=== PATIENT | male | born 1945 | race American Indian/Alaskan Native ===

== ENCOUNTER 2018-10-24 14:09 | Emergency (ER) | payer MEDICARE, MEDICAID ==
--- NOTE | 2018-10-24 14:42 | Emergency Department Report ---
HPI - General Chief Complaint: Urogenital-Male Time Seen by Provider: 10/24/18 14:30 - HPI HPI: Ervin 24 The patient is a 73-year-old male sent from the al[facility] for urethral bleeding. The patient has a history of Parkinson's. The patient acknowledges he was told he was passing blood from his penis by saying "that's what they say." Patient denies having pain of any type Location: [See above] Duration: [See above] Quality: [See above] Severity: [See above] Modifying factors: [see above] Context: [see above] Mode of transportation: [not driving] ED Past Medical Hx - Past Medical History Previous Medical History?: Yes Additional medical history: PARKINSON'S, DYSLIPEDEMIA, BPH - Surgical History Past Surgical History?: No - Family History Family history: no significant - Social History Smoking Status: Never Smoker Substance Use Type: None - Medications Home Medications: Home Medications Medication Instructions Recorded Confirmed Last Taken Type Sulfamethoxazole/Trimethoprim 1 each PO BID #14 tablet 10/24/18 Unknown Rx [Bactrim DS TAB] ED Review of Systems ROS: Stated complaint: URETHRAL BLEEDING Other details as noted in HPI Constitutional: no symptoms reported Eyes: denies: eye pain ENT: denies: throat pain Respiratory: no symptoms reported Cardiovascular: denies: chest pain Endocrine: no symptoms reported Gastrointestinal: denies: abdominal pain Genitourinary: hematuria. denies: testicular pain Musculoskeletal: denies: back pain Neurological: denies: headache Physical Exam - Physical Exam Vital Signs: Vital Signs 10/24/18 14:10 Pulse Rate 86 Respiratory 16 Rate Blood Pressure 94/51 O2 Sat by Pulse 100 Oximetry Physical Exam: GENERAL: The patient is well-developed well-nourished male lying on stretcher eating a sandwich not appearing to be in acute distress HEENT: Normocephalic. Atraumatic. Extraocular motions are intact. Patient has moist mucous membranes. NECK: Supple. No meningitic signs are noted. There is no adenopathy noted. CHEST/LUNGS: Clear to auscultation. There is no respiratory distress noted. HEART/CARDIOVASCULAR: Regular. There is no tachycardia. There is no gallop rub or murmur. ABDOMEN: Abdomen is soft, nontender. Patient has normal bowel sounds. There is no abdominal distention. SKIN: There is no rash. There is no edema. There is no diaphoresis. NEURO: The patient is awake and alert. The patient is cooperative. The patient has normal speech MUSCULOSKELETAL: There is no evidence of acute injury. GENITOURINARY: No blood at the urethral meatus. No penile lesions appreciated ED Course Vital Signs 10/24/18 14:10 Pulse Rate 86 Respiratory 16 Rate Blood Pressure 94/51 O2 Sat by Pulse 100 Oximetry ED Medical Decision Making - Lab Data Result diagrams: 10/24/18 14:42 10/24/18 14:42 Laboratory Tests 10/24/18 10/24/18 10/24/18 14:42 14:42 14:42 WBC 4.9 RBC 3.34 L Hgb 10.9 L Hct 32.0 L MCV 96 H MCH 33 H MCHC 34 RDW 14.1 Plt Count 230 PT 13.3 INR 1.04 APTT 27.9 Sodium 141 Potassium 4.1 Chloride 106.2 Carbon Dioxide 28 Anion Gap 11 BUN 11 Creatinine 0.6 L Estimated GFR > 60 BUN/Creatinine Ratio 18 Glucose 87 Calcium 9.1 Urine Color Urine Turbidity Urine pH Ur Specific Severance Urine Protein Urine Glucose (UA) Urine Ketones Urine Blood Urine Nitrite Urine Bilirubin Urine Urobilinogen Ur Leukocyte Esterase Urine WBC (Auto) Urine RBC (Auto) 10/24/18 16:45 WBC RBC Hgb Hct MCV MCH MCHC RDW Plt Count PT INR APTT Sodium Potassium Chloride Carbon Dioxide Anion Gap BUN Creatinine Estimated GFR BUN/Creatinine Ratio Glucose Calcium Urine Color Yellow Urine Turbidity Clear Urine pH 7.0 Ur Specific Severance 1.015 Urine Protein <15 mg/dl Urine Glucose (UA) Neg Urine Ketones Tr Urine Blood Neg Urine Nitrite Neg Urine Bilirubin Neg Urine Urobilinogen < 2.0 Ur Leukocyte Esterase Neg Urine WBC (Auto) < 1.0 Urine RBC (Auto) 16.0 - Radiology Data Radiology results: report reviewed (CT abdomen and pelvis), image reviewed (CT abdomen and pelvis) [facility] [address] [place] [address] Cat Scan Report Signed Patient: DONTRELL JASSO MR#: [id number] : 1945 Acct:[id number] Age/Sex: 73 / M ADM Date: 10/24/18 Loc: ED Attending Dr: Ordering Physician: EMILY GARBER MD Date of Service: 10/24/18 Procedure(s): CT abdomen pelvis wo con Accession Number(s): [id number] cc: EMILY GARBER MD CT ABDOMEN AND PELVIS WITHOUT CONTRAST HISTORY: bleeding from urethra COMPARISON: None TECHNIQUE: Images of the abdomen and pelvis were obtained without IV contrast. O ral contrast was not given. This exam is limited without IV contrast and is tailored for evaluation of renal calculi. Renal masses and other sources of hematuria and abdominal pain may not be visible on this exam. CONTRAST: None. FINDINGS: CT ABDOMEN: Lung Bases: Clear. Liver: No significant abnormality. Biliary: No significant abnormality. Spleen: No significant abnormality. Unenlarged. Pancreas: No significant abnormality. Adrenals: No significant abnormality. Right Kidney: No nephrolithiasis or hydronephrosis. A dominant 2.3 cm right renal cyst. Left Kidney: No nephrolithiasis or hydronephrosis. A dominant 1.1 cm left renal cyst. Lymphatics: Soft tissue fullness in the retroperitoneum. Retroperitoneal lymphadenopathy cannot be excluded. Vasculature: No significant abnormality. Bowel/Peritoneum: A large volume of stool throughout the colon. No free air. No free fluid. CT PELVIS: : The urinary bladder is moderately distended with no obvious mass, wall thi ckening or calculus. The prostate is enlarged. Osseous Structures: A 1 cm irregular lucent lesion of the right posterior iliac bone and a mixed density 3 cm lesion of the left posterior iliac bone. No other suspicious bone lesions. Additional Findings: None IMPRESSION: 1. Negative for urolithiasis or obstructive uropathy. 2. Retroperitoneal soft tissue fullness. Retroperitoneal lymphadenopathy cannot be excluded. 3. Benign renal cysts. 4. Bilateral iliac bone lesions. Recommend further evaluation with x-rays and nuclear medicine bone scan. Signer Name: Magen Parra MD Signed: 10/24/2018 4:22 PM Workstation Name: [id number] Transcribed By: REF Dictated By: MAGEN PARRA MD Electronically Authenticated By: MAGEN PARRA MD Signed Date/Time: 10/24/181621 DD/ 08 TD/TT: - Medical Decision Making CT findings and labs discussed with patient's daughter in the room. Importance of follow-up for further evaluation of the lesion seen on the pelvic iliac crests was stressed. Family verbalized understanding - Differential Diagnosis cystitis, UTI, bladder mass, renal mass Critical care attestation.: If time is entered above; I have spent that time in minutes in the direct care of this critically ill patient, excluding procedure time. ED Disposition Clinical Impression: Hematuria Disposition: DC- TO HOME OR SELFCARE Is pt being admited?: No Does the pt Need Aspirin: No Condition: Stable Instructions: Acute Hematuria (ED) Additional Instructions: Return to the emergency department immediately should you develop worsening symptoms, fever, inability to tolerate food or liquid or any other concerns. Prescriptions: Sulfamethoxazole/Trimethoprim [Bactrim DS TAB] 1 each PO BID #14 tablet Referrals: MOISÉS JACKSON MD [Primary Care Provider] - 3-5 Days your, urologist [Other] - 3-5 Days Time of Disposition: 18:19
[2018-10-24 14:58] LABS: Hemoglobin 10.9 gm/dl (11.8-15.2); Mean Corpuscular HGB Conc 34 % (32-34); Mean Corpuscular Volume 96 fl (84-94); Platelet Count 230 K/mm3 (140-440); Red Blood Count 3.34 M/mm3 (3.65-5.03); Red Cell Distribution Width 14.1 % (13.2-15.2)
[2018-10-24 15:09] LABS: INR 1.04 (0.87-1.13)
[2018-10-24 15:10] LABS: Partial Thromboplastin Time 27.9 Sec. (24.2-36.6)
[2018-10-24 15:37] LABS: BUN/Creatinine Ratio 18; Blood Urea Nitrogen 11 mg/dL (9-20); Calcium 9.1 mg/dL (8.4-10.2); Hemolysis Index 1
--- NOTE | 2018-10-24 16:26 | Cat Scan Report ---
CT ABDOMEN AND PELVIS WITHOUT CONTRAST HISTORY: bleeding from urethra COMPARISON: None TECHNIQUE: Images of the abdomen and pelvis were obtained without IV contrast. Oral contrast was not given. This exam is limited without IV contrast and is tailored for evaluation of renal calculi. Renal iris s and other sources of hematuria and abdominal pain may not be visible on this exam. CONTRAST: None. FINDINGS: CT ABDOMEN: Lung Bases: Clear. Liver: No significant abnormality. Biliary: No significant abnormality. Spleen: No significant abnormality. Unenlarged. Pancreas: No significant abnormality. Adrenals: No significant abnormality. Right Kidney: No nephrolithiasis or hydronephrosis. A dominant 2.3 cm right renal cyst. Left Kidney: No nephrolithiasis or hydronephrosis. A dominant 1.1 cm left renal cyst. Lymphatics: Soft tissue fullness in the retroperitoneum. Retroperitoneal lymphadenopathy cannot be ex cluded. Vasculature: No significant abnormality. Bowel/Peritoneum: A large volume of stool throughout the colon. No free air. No free fluid. CT PELVIS: : The urinary bladder is moderately distended with no obvious mass, wall thickening or calculus. Th e prostate is enlarged. Osseous Structures: A 1 cm irregular lucent lesion of the right posterior iliac bone and a mixed dens ity 3 cm lesion of the left posterior iliac bone. No other suspicious bone lesions. Additional Findings: None IMPRESSION: 1. Negative for urolithiasis or obstructive uropathy. 2. Retroperitoneal soft tissue fullness. Retroperitoneal lymphadenopathy cannot be excluded. 3. Benign renal cysts. 4. Bilateral iliac bone lesions. Recommend further evaluation with x-rays and nuclear medicine bone s can. Signer Name: Jay Chapa MD Signed: 10/24/2018 4:22 PM Workstation Name: [id number]
[2018-10-24 17:24] LABS: Bilirubin,Urine NEG (Negative); Blood,Urine NEG (Negative); Color,Urine Yellow (Yellow); Protein,Urine <15 mg/dL mg/dL (Negative); Urobilinogen,Urine < 2.0 mg/dL (<2.0); WBC,Urine < 1.0 /HPF (0.0-6.0)
[2018-10-24 18:52] VITALS: BP 100/54
== END 2018-10-24 20:05 | disposition home or self-care (01) ==
LOC: ED 14:09
DX: N28.1 Cyst of kidney, acquired (principal); M89.9 Disorder of bone, unspecified; G20 Parkinson's disease; N40.0 Benign prostatic hyperplasia without lower urinary tract symptoms; Z91.013 Allergy to seafood
CPT/HCPCS: 36415; 74176; 80048; 81001; 85027; 85610; 85730; 87076; 87086; 87186